=== PATIENT | male | born 1955 | race American Indian/Alaskan Native ===

== ENCOUNTER 2016-04-14 19:48 | Inpatient (IN) | payer MEDICARE ==
[2016-04-14 22:21] LABS: Basophils % (Auto) 0.2 % (0.0-1.8); Eosinophils % (Auto) 0.1 % (0.0-4.3); Hematocrit 49.8 % (35.5-45.6); Hemoglobin 16.4 gm/dl (11.8-15.2); Mean Corpuscular HGB Conc 33 % (32-34); Mean Corpuscular Hemoglobin 29 pg (28-32); Mean Corpuscular Volume 89 fl (84-94); Platelet Count 251 K/mm3 (140-440); Red Blood Count 5.63 M/mm3 (3.65-5.03); Red Cell Distribution Width 14.7 % (13.2-15.2); White Blood Count 12.7 K/mm3 (4.5-11.0)
[2016-04-14 22:40] LABS: Calcium 9.8 mg/dL (8.4-10.2); Chloride 88.3 mmol/L (98-107); Potassium 4.2 mmol/L (3.6-5.0)
[2016-04-15] MEDS ORDERED: ZOFRAN IV ONE (10:31)
[2016-04-15] MEDS ORDERED: NACL 0.9% 1000 ML 1,000 ML IV ONE (10:31)
[2016-04-15] MEDS ORDERED: MORPHINE IV ONE (10:31)
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
--- NOTE | 2016-04-15 10:45 | Admit Criteria Form ---
Admission Criteria Documentation: VOMITING Clinical Indications for Admission to Inpatient Care ( Place 'X' for any and all applicable criteria): Admission is indicated for ANY ONE of the following(1)(2)(3): [X ]I. Inpatient admission required rather than observation care because of ANY ONE of the following: [ ]i) Hemodynamic instability that is severe or persistent [ ]ii) Vomiting that is severe or persistent [ ]iii) Severe electrolyte abnormalities requiring inpatient care [ ]iv) Severe pain requiring acute inpatient management [ ]v) High fever or infection requiring inpatient admission as indicated by ANY ONE of the following(7)(8): [ ]1) Appropriate outpatient or observation care antimicrobial treatment unavailable, not effective, or not feasible [ ]2) Documented bacteremia [ ]3) Temp >104.9 degrees F (40.5 degrees C) (oral) [ ]4) Temp >103.1 degrees F (39.5 C) (oral) or <96.8 degrees F (36 C) (rectal) that does not respond to all emergency treatment measures [X]vi) Acute renal failure [ ]vii) IV fluid to replace significant ongoing losses (greater than 3 L/m2 per day) [ ]viii) Parenteral nutrition regimen that must be implemented on inpatient basis [ ]ix) Other condition, treatment or monitoring requiring inpatient admission [X ]II. Complete or partial gastrointestinal obstruction [ ]III. Other cause of vomiting requiring hospitalization (eg, poisoning, increased intracranial pressure) [ ]IV. Vomiting due to significant metabolic derangement (eg, severe hypercalcemia, diabetic ketoacidosis) Extended stay beyond goal length of stay may be needed for(1)(4): [ ]a) Severe vomiting [ ]b) Persistent vomiting, vital sign changes, severe electrolyte imbalance , or diagnosed cause of vomiting that requires continued hospitalization (eg, gastrointestinal obstruction , increased intracranial pressure) [ ]c) Surgery to treat identified causes of vomiting (eg, bowel obstruction , intracranial process) [ ]d) Comorbid illness that requires inpatient care (eg, acute heart failure , renal failure) [ ]e) Need for inpatient endoscopy The original [facility] content created by [email or web address] has been revised. The portions of the content which have been revised are identified through the use of italic text or in bold, and [facility] [employer] has neither reviewed nor approved the modified material. All other unmodified content is copyright [facility]. Please see references footnoted in the original [facility] edition 2016 Admission Criteria Met: Yes
[2016-04-15 10:53] LABS: Bilirubin,Urine NEG (Negative); Blood,Urine MOD (Negative); Ketones,Urine NEG (Negative); Leukocyte Esterase,Urine MOD (Negative); Mucus,Urine 1+ /HPF; Nitrite,Urine NEG (Negative); Urobilinogen,Urine < 2.0 mg/dL (<2.0)
[2016-04-15 10:54] LABS: WBC,Urine > 182.0 /HPF (0.0-6.0)
--- NOTE | 2016-04-15 11:29 | Cat Scan Report ---
CT OF THE ABDOMEN AND PELVIS WITHOUT CONTRAST HISTORY: Lower abdominal pain, nausea and vomiting. TECHNIQUE: Helical CT without contrast. Sagittal and coronal reformatted images. FINDINGS: Compared to 03/19/12. Multiple dilated, fluid filled loops of small bowel are identified throughout the abdomen. Terminal small bowel loops and colon are decompressed. A partial small bowel obstruction is suspected. This is probably secondary to an adhesion in the lower abdomen. The appendix is not confidently identified but there is a low suspicion for acute appendicitis. Normal liver, pancreas, spleen and adrenal glands. A solitary 1 cm gallstone is identified within the gallbladder. No inflammatory changes or abnormal dilatation. Bilateral nephrolithiasis is identified. A staghorn calculus is identified in the inferior right kidney measuring up to 4 x 2 cm. There is mild pyelocaliectasis in the right kidney. A large calyceal stone is identified in the inferior left kidney measuring 3.1 x 1.5 cm. There are scattered calyceal stones bilaterally measuring 2-3 mm. No ureteral stones are appreciated. The bladder is decompressed with Reyna catheter. Diffuse bladder wall thickening is noted which is unchanged. The bony structures are demineralized with advanced degenerative changes. Posterior fusion of the lumbar spine is noted. No acute fracture or bone lesion is appreciated. Heart size is normal. The visualized lung bases are clear. IMPRESSION: Partial small bowel obstruction. Bilateral nephrolithiasis. This appears to be mildly obstructing on the right side. Nephrolithiasis as significantly increased since 03/19/12. The bladder is contracted but diffuse bladder wall thickening is suspected which is unchanged. Chronic cystitis? Cholelithiasis.
[2016-04-15] MEDS ORDERED: ROCEPHIN/NS 1 GM/50 ML 50 ML IV ONE (12:05)
--- NOTE | 2016-04-15 14:13 | Event Note ---
Date: 04/15/16 See H/p in reports [facility]BO Paraplegia UTI
[2016-04-15] MEDS ORDERED: MILK OF MAGNESIA PO PRN (14:15)
[2016-04-15] MEDS ORDERED: DULCOLAX PR PRN (14:15)
[2016-04-15] MEDS ORDERED: TYLENOL PO PRN (14:15)
[2016-04-15] MEDS ORDERED: XYLOCAINE 1% MPF 5 mL INFILTRATI ONE (14:18)
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
[2016-04-15] MEDS ORDERED: ROCEPHIN/NS 1 GM/50 ML 50 ML IV SCH (16:00)
[2016-04-15] MEDS: D5/0.45NS 1,000 ML IV SCH (16:30)
[2016-04-15] MEDS: DILAUDID IV PRN ×2 (17:00→21:15)
[2016-04-16] MEDS: DILAUDID IV PRN ×4 (01:49→22:00)
[2016-04-16 05:47] LABS: Basophils % (Auto) 0.1 % (0.0-1.8); Eosinophils % (Auto) 1.2 % (0.0-4.3); Hematocrit 47.3 % (35.5-45.6); Hemoglobin 16.1 gm/dl (11.8-15.2); Mean Corpuscular HGB Conc 34 % (32-34); Mean Corpuscular Hemoglobin 30 pg (28-32); Mean Corpuscular Volume 89 fl (84-94); Platelet Count 212 K/mm3 (140-440); Red Blood Count 5.34 M/mm3 (3.65-5.03); Red Cell Distribution Width 14.3 % (13.2-15.2); White Blood Count 7.7 K/mm3 (4.5-11.0)
[2016-04-16 06:12] LABS: BUN/Creatinine Ratio 20.45; Calcium 8.5 mg/dL (8.4-10.2); Chloride 88.2 mmol/L (98-107); Potassium 3.8 mmol/L (3.6-5.0)
--- NOTE | 2016-04-16 09:34 | XRay Report ---
Abdominal series: History: Small bowel obstruction. Findings: No acute cardiopulmonary findings. No free intraperitoneal air. Few distended loops of small bowel with minimally large bowel. No radiopaque calculus or abnormal calcification. Impression: Probable incomplete small bowel obstruction.
[2016-04-16] MEDS ORDERED: ROCEPHIN 2,000 MG in NACL 0.9% 50 ML IV SCH (10:00)
--- NOTE | 2016-04-16 10:14 | Progress Note ---
Assessment and Plan IMP: Small bowel obstruction. Dehydration. PLAN: RL bolus, 1 liter in 4 hours. Small bowel series. Subjective Date of service: 04/16/16 Patient Reports: Positive: no new complaints, feels better, pain is less, no flatus, no bowel movement Objective Vital Signs - 12hr 04/16/16 04/16/16 04/16/16 01:49 01:53 02:03 Temperature 98.7 F Pulse Rate [ 97 H Left From Monitor] Respiratory 18 20 20 Rate Blood Pressure 137/85 [Left Arm] O2 Sat by Pulse 98 Oximetry 04/16/16 04/16/16 06:06 07:00 Temperature 98.3 F Pulse Rate [ 93 H Left From Monitor] Respiratory 18 18 Rate Blood Pressure 96/69 [Left Arm] O2 Sat by Pulse 98 Oximetry - Abdomen soft, not tender, bowel sounds hypoactive, other (NG in place.) - Labs 04/16/16 04:56 04/16/16 04:56 Diabetes panel 04/16/16 Range/Units 04:56 Sodium 135 L (137-145) mmol/L Potassium 3.8 (3.6-5.0) mmol/L Chloride 88.2 L (98-107) mmol/L Carbon Dioxide 27 (22-30) mmol/L BUN 45 H (9-20) mg/dL Creatinine 2.2 H (0.8-1.5) mg/dL Glucose 130 H (75-100) mg/dL Calcium 8.5 (8.4-10.2) mg/dL Calcium panel 04/16/16 Range/Units 04:56 Calcium 8.5 (8.4-10.2) mg/dL Pituitary panel 04/16/16 Range/Units 04:56 Sodium 135 L (137-145) mmol/L Potassium 3.8 (3.6-5.0) mmol/L Chloride 88.2 L (98-107) mmol/L Carbon Dioxide 27 (22-30) mmol/L BUN 45 H (9-20) mg/dL Creatinine 2.2 H (0.8-1.5) mg/dL Glucose 130 H (75-100) mg/dL Calcium 8.5 (8.4-10.2) mg/dL Adrenal panel 04/16/16 Range/Units 04:56 Sodium 135 L (137-145) mmol/L Potassium 3.8 (3.6-5.0) mmol/L Chloride 88.2 L (98-107) mmol/L Carbon Dioxide 27 (22-30) mmol/L BUN 45 H (9-20) mg/dL Creatinine 2.2 H (0.8-1.5) mg/dL Glucose 130 H (75-100) mg/dL Calcium 8.5 (8.4-10.2) mg/dL - Imaging Abdominal x-ray: report reviewed, image reviewed (with Dr. Crenshaw)
[2016-04-16] MEDS ORDERED: LACTATED RINGERS 1,000 ML IV SCH (11:00)
[2016-04-16] MEDS: ROCEPHIN/NS 2 GM/100 ML 100 ML IV SCH (11:11)
[2016-04-16] MEDS ORDERED: CHLORASEPTIC MM PRN (12:04)
[2016-04-16] MEDS: D5/0.45NS 1,000 ML IV SCH (16:40)
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
[2016-04-17] MEDS: D5/0.45NS 1,000 ML IV SCH ×2 (00:56→08:40)
[2016-04-17] MEDS: D5LR 1,000 ML IV SCH (03:00)
[2016-04-17 06:04] LABS: Basophils % (Auto) 0.3 % (0.0-1.8); Eosinophils % (Auto) 0.4 % (0.0-4.3); Hemoglobin 15.6 gm/dl (11.8-15.2); Mean Corpuscular HGB Conc 33 % (32-34); Mean Corpuscular Hemoglobin 29 pg (28-32); Mean Corpuscular Volume 88 fl (84-94); Platelet Count 223 K/mm3 (140-440); Red Blood Count 5.32 M/mm3 (3.65-5.03); Red Cell Distribution Width 14.5 % (13.2-15.2); White Blood Count 8.1 K/mm3 (4.5-11.0)
[2016-04-17 06:21] LABS: Blood Urea Nitrogen 42 mg/dL (9-20); Calcium 9.3 mg/dL (8.4-10.2); Carbon Dioxide 31 mmol/L (22-30); Chloride 86.2 mmol/L (98-107); Glucose 166 mg/dL (75-100); Potassium 3.9 mmol/L (3.6-5.0); Sodium 136 mmol/L (137-145)
[2016-04-17 06:32] LABS: Anion Gap 23 mmol/L
[2016-04-17] MEDS: ROCEPHIN/NS 2 GM/100 ML 100 ML IV SCH (09:35)
[2016-04-17] MEDS ORDERED: DIPRIVAN 10 MG/ML IV ONE (10:41)
[2016-04-17] MEDS ORDERED: DILAUDID ONE (10:41)
--- NOTE | 2016-04-17 10:53 | Event Note ---
Date: 04/17/16 The patient vomited a lot of the contrast given through the G-tube. The tube drainage is probably abundant. The abdomen is mild tenderness in the left side. No guarding or rebound. The fluoroscopic small bowel series showed small bowel obstruction. Impression: Complete small bowel obstruction. Plan: Exploratory laparotomy. The patient was explained the need for operative procedure, the risk and complications. He requested to proceed with the operation.
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
--- NOTE | 2016-04-17 11:25 | Anesthesia Day of Surgery ---
Anesthesia Day of Surgery - Day of Surgery Patient Examined: Yes Patient H&P Reviewed: Yes Patient is NPO: Yes
[2016-04-17] MEDS ORDERED: PEPCID IV ONE (11:35)
[2016-04-17] MEDS ORDERED: NACL 0.9% 1000 ML 1,000 ML ONE (11:35)
[2016-04-17] MEDS ORDERED: PEPCID PO NR (12:00)
[2016-04-17] MEDS ORDERED: VERSED IV NR (12:00)
[2016-04-17] MEDS ORDERED: NACL 0.9% 1000 ML 1,000 ML IV SCH (12:00)
[2016-04-17] MEDS ORDERED: PEPCID IV NR (12:00)
[2016-04-17] MEDS ORDERED: NEO SYNEPHRINE/NS Syringe(OR USE) IV ONE (12:39)
[2016-04-17] MEDS ORDERED: NACL 0.9% IR ONE (12:40)
[2016-04-17] MEDS ORDERED: ZEMURON IV ONE (12:55)
[2016-04-17] MEDS ORDERED: XYLOCAINE MPF 2% ONE (12:55)
[2016-04-17] MEDS ORDERED: ZOFRAN ONE (12:55)
[2016-04-17] MEDS ORDERED: BLOXIVERZ ONE (12:55)
[2016-04-17] MEDS ORDERED: ROBINUL ONE (12:56)
[2016-04-17] MEDS: DILAUDID IV PRN ×4 (13:45→14:20)
--- NOTE | 2016-04-17 13:55 | Operative Report ---
Operative Report Operative Report: Date of operation: 04/17/2016 Preoperative diagnosis: Small bowel obstruction. Postoperative diagnosis: #1. Small bowel obstruction. #2. Peritoneal adhesions. #3. Small bowel enterotomy. Operation: #1. Exploratory laparotomy. #2. Lysis of adhesions. #3. Segmental small bowel resection. Surgeon: Goran Davis M.D. Findings: 60 years old paraplegic patient admitted to the hospital with small bowel approximately an urinary tract infection secondary to bilateral renal calculi. On the second hospital day an abdominal series showed no change in the small bowel pattern on the x-rays. A Gastrografin small bowel series was ordered and this showed a complete small bowel obstruction. At operation we found a constricting band causing complete obstruction at the mid ileum with another area of obstruction secondary to an adhesion to the right-sided lower abdominal wall. Procedure: Under general anesthesia the patient's abdomen was prepped and draped in the usual sterile manner. A midline incision using the old surgical scar was performed using a #10 blade from above the umbilicus to above the 60s pubis. Dissection carried down to the fascia which was divided with electrocautery. The peritoneal cavity was entered at the epigastric area which was clear of adhesions. The incision was continued and the fascia and peritoneum all the way down to the suprapubic area. Dilated bowel wall and collapsed bowel were eviscerated until we found the band of adhesion causing the obstruction. Distal to that there was another adhesion to the anterior abdominal wall. Upon taking down these adhesions, it was so dense that an enterotomy occurred. We decided to resect this small portion of bowel. This was done by approximating the small bowel about 8 cm Roxanol and distal to the enterotomy site. Then through the enterotomy side we passed a GULSHAN stapler, one side and similarly one distally and then closed it and fired it. The hole in the bowel wall was grasped with the Allis clamps and closed with a TA stapler. A nice [id number] anastomosis was obtained in this manner. It was done. Abdominal cavity was irrigated with normal saline solution. Preparations were made for closure. The fascia was approximated with a running stitch of looped # 1 PDS. Skin was approximated with skin toyin. The wound was dressed with sterile dressings. She was awakened, extubated and transferred to the recovery room in good condition. Estimated blood loss: Negligible Intravenous fluid replacement: Crystalloids Complications: None Specimens: Segment of small bowel.
[2016-04-17] MEDS ORDERED: D5LR 1,000 ML IV ONE (14:00)
--- NOTE | 2016-04-17 15:12 | Post Anesthesia Evaluation ---
- Post Anesthesia Evaluation Patient Participated: Yes Airway Patent: Yes Stable Respiratory Function: Yes Nausea/Vomiting: No Temp > 96.8F: Yes Pain Manageable: Yes Adequeate Hydration: Yes Anesthesia Complications: No
--- NOTE | 2016-04-17 15:48 | Fluoroscopy Report ---
SMALL BOWEL SERIES WITH GASTROGRAFIN: FINDINGS: Initial images through 3 hours post ingestion demonstrate generalized small bowel dilatation with very slow progression of the contrast material. At 9 hours post ingestion, contrast has progressed into the distal small bowel. Between the 9 and 20 hour images, the patient regurgitated with very little residual contrast material in the bowel. IMPRESSION: Although almost all of the contrast was regurgitated at 20 hours post ingestion, the findings are suspicious for high-grade small bowel obstruction.
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
[2016-04-17] MEDS: HEPARIN SUB-Q SCH (22:30)
[2016-04-18] MEDS: D5LR 1,000 ML IV SCH ×2 (06:30→15:57)
[2016-04-18] MEDS: HEPARIN SUB-Q SCH ×3 (06:30→22:00)
[2016-04-18] MEDS: DILAUDID IV PRN ×4 (06:30→22:30)
[2016-04-18 08:15] LABS: Basophils % (Auto) 0.3 % (0.0-1.8); Eosinophils % (Auto) 1.1 % (0.0-4.3); Hematocrit 44.7 % (35.5-45.6); Hemoglobin 14.6 gm/dl (11.8-15.2); Mean Corpuscular HGB Conc 33 % (32-34); Mean Corpuscular Hemoglobin 30 pg (28-32); Mean Corpuscular Volume 90 fl (84-94); Red Blood Count 4.96 M/mm3 (3.65-5.03); Red Cell Distribution Width 14.4 % (13.2-15.2); White Blood Count 10.9 K/mm3 (4.5-11.0)
[2016-04-18 08:16] LABS: Anion Gap 15 mmol/L; BUN/Creatinine Ratio 32.22; Blood Urea Nitrogen 29 mg/dL (9-20); Calcium 8.5 mg/dL (8.4-10.2); Carbon Dioxide 32 mmol/L (22-30); Chloride 100.3 mmol/L (98-107); Glucose 115 mg/dL (75-100); Potassium 3.5 mmol/L (3.6-5.0); Sodium 144 mmol/L (137-145)
[2016-04-18 08:26] LABS: Platelet Count 201 K/mm3 (140-440)
[2016-04-18] MEDS: ROCEPHIN/NS 2 GM/100 ML 100 ML IV SCH (10:13)
--- NOTE | 2016-04-18 14:12 | Progress Note ---
Assessment and Plan IMP: Doing well after laparotomy and segmental small bowel resection for SBO. PLAN: D/C NG. Clear liquid diet. Subjective Date of service: 04/18/16 Patient Reports: Positive: no new complaints, feels better, no flatus, no bowel movement Objective Vital Signs - 12hr 04/18/16 04/18/16 08:00 10:00 Temperature 98.7 F Pulse Rate [ 93 H Left Brachial] Pulse Rate [ 93 H Left From Monitor] Respiratory 20 20 Rate Blood Pressure 145/87 [Left Arm] O2 Sat by Pulse 95 Oximetry - Abdomen soft, not tender, bowel sounds normal, wound (dressings dry and clear.), other ( NG: minimal drainage) - Psychiatric oriented to time, oriented to person, oriented to place, speech is normal - Labs 04/18/16 07:50 04/18/16 07:50 Diabetes panel 04/18/16 Range/Units 07:50 Sodium 144 D (137-145) mmol/L Potassium 3.5 L (3.6-5.0) mmol/L Chloride 100.3 (98-107) mmol/L Carbon Dioxide 32 H (22-30) mmol/L BUN 29 H (9-20) mg/dL Creatinine 0.9 (0.8-1.5) mg/dL Glucose 115 H (75-100) mg/dL Calcium 8.5 (8.4-10.2) mg/dL Calcium panel 04/18/16 Range/Units 07:50 Calcium 8.5 (8.4-10.2) mg/dL Pituitary panel 04/18/16 Range/Units 07:50 Sodium 144 D (137-145) mmol/L Potassium 3.5 L (3.6-5.0) mmol/L Chloride 100.3 (98-107) mmol/L Carbon Dioxide 32 H (22-30) mmol/L BUN 29 H (9-20) mg/dL Creatinine 0.9 (0.8-1.5) mg/dL Glucose 115 H (75-100) mg/dL Calcium 8.5 (8.4-10.2) mg/dL Adrenal panel 04/18/16 Range/Units 07:50 Sodium 144 D (137-145) mmol/L Potassium 3.5 L (3.6-5.0) mmol/L Chloride 100.3 (98-107) mmol/L Carbon Dioxide 32 H (22-30) mmol/L BUN 29 H (9-20) mg/dL Creatinine 0.9 (0.8-1.5) mg/dL Glucose 115 H (75-100) mg/dL Calcium 8.5 (8.4-10.2) mg/dL
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
[2016-04-18] MEDS: ZOFRAN IV PRN (17:51)
[2016-04-19] MEDS: DILAUDID IV PRN ×3 (01:30→22:58)
[2016-04-19] MEDS: HEPARIN SUB-Q SCH ×2 (06:00→16:12)
[2016-04-19 06:48] LABS: Anion Gap 13 mmol/L; Blood Urea Nitrogen 18 mg/dL (9-20); Calcium 8.2 mg/dL (8.4-10.2); Carbon Dioxide 33 mmol/L (22-30); Chloride 94.7 mmol/L (98-107); Glucose 103 mg/dL (75-100); Potassium 3.8 mmol/L (3.6-5.0); Sodium 137 mmol/L (137-145)
[2016-04-19 07:02] LABS: Basophils % (Auto) 0.4 % (0.0-1.8); Eosinophils % (Auto) 3.3 % (0.0-4.3); Hemoglobin 12.5 gm/dl (11.8-15.2); Mean Corpuscular HGB Conc 33 % (32-34); Mean Corpuscular Hemoglobin 30 pg (28-32); Mean Corpuscular Volume 91 fl (84-94); Platelet Count 207 K/mm3 (140-440); Red Blood Count 4.18 M/mm3 (3.65-5.03); Red Cell Distribution Width 14.1 % (13.2-15.2); White Blood Count 9.9 K/mm3 (4.5-11.0)
[2016-04-19] MEDS: D5LR 1,000 ML IV SCH ×2 (08:32→18:08)
--- NOTE | 2016-04-19 10:11 | Progress Note ---
Assessment and Plan IMP: Resolved SBO PLAN: Advance diet to full liquids. Subjective Date of service: 04/19/16 Patient Reports: Positive: no new complaints, tolerating liquids well, no flatus , no bowel movement. Negative: nausea, vomiting Objective Vital Signs - 12hr 04/18/16 04/19/16 04/19/16 23:09 01:30 02:00 Temperature 98.0 F Pulse Rate [ 98 H Right From Monitor] Respiratory 20 20 20 Rate Blood Pressure [Left Arm] Blood Pressure 167/89 [Right Arm] O2 Sat by Pulse 97 Oximetry 04/19/16 07:35 Temperature 99.3 F Pulse Rate [ 84 Right From Monitor] Respiratory 18 Rate Blood Pressure 176/97 [Left Arm] Blood Pressure 176/105 [Right Arm] O2 Sat by Pulse Oximetry - Abdomen soft, tender (minimal incisional tenderness), bowel sounds normal, wound ( dressings dry and clear) - Psychiatric oriented to time, oriented to person, oriented to place, speech is normal, memory intact - Labs 04/19/16 05:19 04/19/16 05:19 Diabetes panel 04/19/16 Range/Units 05:19 Sodium 137 (137-145) mmol/L Potassium 3.8 (3.6-5.0) mmol/L Chloride 94.7 L (98-107) mmol/L Carbon Dioxide 33 H (22-30) mmol/L BUN 18 (9-20) mg/dL Creatinine 0.8 (0.8-1.5) mg/dL Glucose 103 H (75-100) mg/dL Calcium 8.2 L (8.4-10.2) mg/dL Calcium panel 04/19/16 Range/Units 05:19 Calcium 8.2 L (8.4-10.2) mg/dL Pituitary panel 04/19/16 Range/Units 05:19 Sodium 137 (137-145) mmol/L Potassium 3.8 (3.6-5.0) mmol/L Chloride 94.7 L (98-107) mmol/L Carbon Dioxide 33 H (22-30) mmol/L BUN 18 (9-20) mg/dL Creatinine 0.8 (0.8-1.5) mg/dL Glucose 103 H (75-100) mg/dL Calcium 8.2 L (8.4-10.2) mg/dL Adrenal panel 04/19/16 Range/Units 05:19 Sodium 137 (137-145) mmol/L Potassium 3.8 (3.6-5.0) mmol/L Chloride 94.7 L (98-107) mmol/L Carbon Dioxide 33 H (22-30) mmol/L BUN 18 (9-20) mg/dL Creatinine 0.8 (0.8-1.5) mg/dL Glucose 103 H (75-100) mg/dL Calcium 8.2 L (8.4-10.2) mg/dL
[2016-04-19] MEDS: ROCEPHIN/NS 2 GM/100 ML 100 ML IV SCH (11:04)
[2016-04-19] MEDS: APRESOLINE IV PRN (16:08)
[2016-04-19] MEDS: ZOFRAN IV PRN (16:15)
[2016-04-19] MEDS ORDERED: CATAPRES-TTS PATCH TD SCH (18:00)
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
[2016-04-20] MEDS: HEPARIN SUB-Q SCH ×4 (00:10→22:50)
[2016-04-20] MEDS: DILAUDID IV PRN ×3 (05:00→23:18)
--- NOTE | 2016-04-20 10:19 | Progress Note ---
Assessment and Plan IMP: Doing well but no flatus or bm yet. PLAN: Continue on full liquids. Subjective Date of service: 04/20/16 Patient Reports: Positive: no new complaints, tolerating liquids well, no flatus , no bowel movement Objective Vital Signs - 12hr 04/19/16 04/19/16 04/19/16 22:30 22:58 23:28 Temperature Pulse Rate [ Apical] Pulse Rate [ Right From Monitor] Respiratory 20 18 Rate Respiratory 20 Rate [abd] Blood Pressure [Right Arm] O2 Sat by Pulse Oximetry 04/20/16 04/20/16 04/20/16 00:00 05:00 05:30 Temperature 99.1 F Pulse Rate [ Apical] Pulse Rate [ 93 H Right From Monitor] Respiratory 20 20 18 Rate Respiratory Rate [abd] Blood Pressure 149/97 [Right Arm] O2 Sat by Pulse 99 Oximetry 04/20/16 08:00 Temperature 98.5 F Pulse Rate [ 84 Apical] Pulse Rate [ Right From Monitor] Respiratory 18 Rate Respiratory Rate [abd] Blood Pressure 130/64 [Right Arm] O2 Sat by Pulse 97 Oximetry - Abdomen soft, tender (minimal op site), bowel sounds normal - Labs 04/19/16 05:19 04/19/16 05:19
[2016-04-20] MEDS: ROCEPHIN/NS 2 GM/100 ML 100 ML IV SCH (10:40)
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
[2016-04-20] MEDS: D5LR 1,000 ML IV SCH (17:00)
[2016-04-20] MEDS: APRESOLINE IV PRN (23:11)
[2016-04-21] MEDS: DILAUDID IV PRN (04:23)
[2016-04-21] MEDS: HEPARIN SUB-Q SCH ×2 (06:28→13:59)
--- NOTE | 2016-04-21 09:51 | Progress Note ---
Assessment and Plan IMP: Resolved post op ileus. PLAN: GI Soft diet. Subjective Date of service: 04/21/16 Patient Reports: Positive: no new complaints, feels better, flatus, bowel movement Objective Vital Signs - 12hr 04/20/16 04/20/16 04/20/16 22:00 23:11 23:18 Temperature Pulse Rate 76 Pulse Rate [ Right From Monitor] Respiratory 18 20 Rate Respiratory 20 Rate [abd] Blood Pressure 172/103 Blood Pressure [Right Arm] O2 Sat by Pulse Oximetry 04/20/16 04/21/16 04/21/16 23:48 00:00 04:00 Temperature 99.0 F 98.6 F Pulse Rate Pulse Rate [ 76 86 Right From Monitor] Respiratory 18 20 18 Rate Respiratory Rate [abd] Blood Pressure Blood Pressure 162/100 158/86 [Right Arm] O2 Sat by Pulse 99 99 Oximetry 04/21/16 04/21/16 04:23 04:53 Temperature Pulse Rate Pulse Rate [ Right From Monitor] Respiratory 20 18 Rate Respiratory Rate [abd] Blood Pressure Blood Pressure [Right Arm] O2 Sat by Pulse Oximetry - Abdomen soft, tender (op site), bowel sounds normal, wound (dry, clear and healing well. ) - Labs 04/19/16 05:19 04/19/16 05:19
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
[2016-04-21] MEDS: ROCEPHIN/NS 2 GM/100 ML 100 ML IV SCH (11:54)
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
[2016-04-21 17:56] VITALS: BP 144/79
== END 2016-04-21 18:05 | disposition home health service (06) | DRG 329 ==
LOC: ED 19:48 → 2B-SURG 04-15 14:15
PROVIDERS: ADMIT Internal Medicine; ATTEND Internal Medicine
PROC: 0DNB0ZZ Release Ileum, Open Approach (ICD-10-PCS; principal; 2016-04-17)
PROC: 0DNW0ZZ Release Peritoneum, Open Approach (ICD-10-PCS; 2016-04-17)
PROC: 0DQ80ZZ Repair Small Intestine, Open Approach (ICD-10-PCS; 2016-04-17)
PROC: 0DB80ZZ Excision of Small Intestine, Open Approach (ICD-10-PCS; 2016-04-17)
DX: K56.5 Intestinal adhesions [bands] with obstruction (postinfection) (principal); N17.0 Acute kidney failure with tubular necrosis; E43 Unspecified severe protein-calorie malnutrition; G82.20 Paraplegia, unspecified; Z68.1 Body mass index [BMI] 19.9 or less, adult; S36.439A Laceration of unspecified part of small intestine, initial encounter; N30.90 Cystitis, unspecified without hematuria; E86.0 Dehydration; F17.210 Nicotine dependence, cigarettes, uncomplicated; N20.0 Calculus of kidney; E87.6 Hypokalemia; I10 Essential (primary) hypertension
CPT/HCPCS: 36415; 74022; 74176; 74250; 80048; 81001; 82962; 85025; 88307; 96361; 96365; 96375; J0360; J0696; J1170; J1644; J2250; J2270; J2370; J2405; J2704; J2710; J7030; J7120; J7121; Q9963

== ENCOUNTER 2016-08-15 08:57 | Outpatient (CLI) | payer MEDICARE ==
--- NOTE | 2016-08-16 09:54 | Ultrasound Report ---
RIGHT UPPER QUADRANT ULTRASOUND: HISTORY: Right upper quadrant pain, gallstones. Technique: Transabdominal ultrasound imaging with Doppler interrogation. FINDINGS: A 1.3 cm shadowing gallstone is noted near the neck of the gallbladder. There is no evidence for abnormal biliary dilatation. No wall thickening or surrounding fluid. The CBD measures 3 mm. The right kidney measures 11.6 cm in length. There appears to be a large staghorn calculus in the inferior right renal sinus measuring up to 2.6 cm in greatest dimension. There is mild pyelocaliectasis in the superior right kidney. Few scattered renal cysts are also noted. The right kidney is echogenic consistent with medical renal disease. Images of the liver parenchyma, pancreas, and aorta are within normal limits. No perihepatic ascites. IMPRESSION: Cholelithiasis no evidence for acute cholecystitis. Staghorn calculus in the right kidney with mild right pyelocaliectasis. Scattered right renal cysts. Mild medical renal disease.
== END 2016-08-15 08:58 | disposition home or self-care (01) ==
LOC: US 08:57
PROVIDERS: ATTEND Surgery
DX: K80.20 Calculus of gallbladder without cholecystitis without obstruction (principal); N13.2 Hydronephrosis with renal and ureteral calculous obstruction; N28.1 Cyst of kidney, acquired; N28.89 Other specified disorders of kidney and ureter
CPT/HCPCS: 76705

== ENCOUNTER 2016-09-08 11:35 | Day surgery (SDC) | payer MEDICARE ==
--- NOTE | 2016-09-08 12:33 | Short Stay Summary ---
Short Stay Documentation Date of service: 09/08/16 - History Principal diagnosis: malfunctioning nephrostomy tube Past Medical History: other (renal stones with complicated removal) Past Surgical History: Other (renal stones with complicated removal) Social history: no significant social history - Allergies and Medications Current Medications: Allergies No Known Allergies Allergy (Verified 12/09/13 02:22) Home Medications Medication Instructions Recorded Confirmed Last Taken Type Ciprofloxacin HCl [Ciprofloxacin 500 mg PO Q12H #8 tab 04/21/16 09/08/16 07:00 Rx TAB] Acetaminophen [Tylenol] 2 tab PO Q6HR 09/08/16 09/08/16 09/07/16 History - Physical exam General appearance: no acute distress, cachectic Lungs: Normal air movement Breasts: deferred Heart: Regular rate Male Genitourinary: deferred Rectal Exam: deferred Neurological: Other (paraplegia) - Brief post op/procedure progress note Date of procedure: 09/08/16 Pre-op diagnosis: nephrolithiasis Post-op diagnosis: same Procedure: nephrostogram Anesthesia: none Surgeon: LINDSEY HERNANDEZ Estimated blood loss: none Pathology: none Condition: stable - Disposition Condition at discharge: Good Disposition: DC-01 TO HOME OR SELFCARE Short Stay Discharge Plan Activity: advance as tolerated Weight Bearing Status: Weight Bear as Tolerated Diet: regular Wound: keep clean and dry, per your surgeon's advice Follow up with: DI ARIZMENDI MD [Primary Care Provider] - 7 Days
--- NOTE | 2016-09-08 13:48 | Operative Report ---
Operative Report Operative Report: EXAM: FLUOROSCOPIC GUIDED EVALUATION OF THE KIDNEY CLINICAL INDICATION: PATIENT WITH COMPLEX HISTORY AND MULTIPLE SURGERIES WITH PARTIAL RETRACTION OF HIS SURGICAL PLACED NEPHROSTOMY TUBE DATE: 09/08/2016 PROCEDURE: Following an explanation of the risks, benefits and alternatives; written informed consent was obtained. The patient was brought to the angiographic suite and placed in prone position on the examination table. His right indwelling nephrostomy tube appears to have been broken. The tube was prepped and draped in the usual sterile fashion. Contrast was gently injected through the tube into the kidney and opacified the renal pelvis and multiple calyces. The distal aspect of the tube appears to be retracted into and inferior calyx however is still within the collecting system of the kidney. A previously placed double-J ureteral stent immediately opacifies with contrast and drains into the bladder. At this point, the catheter was sutured closed and redressed. The patient tolerated the procedure well. There were no immediate post procedure competitions. IMPRESSION: Nephrostomy demonstrating patency of the patient's ureteral stent and indwelling nephrostomy tube
[2016-09-08 13:50] VITALS: BP 157/88
== END 2016-09-08 14:15 | disposition home or self-care (01) ==
LOC: OPU 11:35
PROVIDERS: ATTEND Radiology Diagnostic Radiology
DX: T83.89XA Other specified complication of genitourinary prosthetic devices, implants and grafts, initial encounter (principal); Y83.8 Other surgical procedures as the cause of abnormal reaction of the patient, or of later complication, without mention of misadventure at the time of the procedure
CPT/HCPCS: 50431; Q9967

== ENCOUNTER 2016-09-19 08:43 | Day surgery (SDC) | payer MEDICARE ==
--- NOTE | 2016-09-19 12:17 | XRay Report ---
Single view abdomen: Compared to 09/02/16. Findings: Stable right ureteral stent. Staghorn calculus left kidney. No significant interval change. No bowel distention or wall thickening. Impression: Findings as detailed above
--- NOTE | 2016-09-19 14:25 | Short Stay Summary ---
Short Stay Documentation Date of service: 09/19/16 Narrative H&P: LATE ENTRY: accession had to be unlocked by prime 61 year old male male with right open stone removal and drain placed by urology with request for drain removal and nephrostogram. Discussed with Dr. Grimaldo prior to seeing patient. When I saw the patient, the patient told me his drain had fallen out 3-4 days ago. XRAY obtained demonstrating stable position of his right ureteral stent. Nurses contacted urology to determine status of PICC line which is not being used. PICC line then removed. - History Past Medical History: other (stone disease) Past Surgical History: Other (right sided stone removal/urological procedures) Social history: no significant social history - Allergies and Medications Current Medications: Allergies No Known Allergies Allergy (Verified 12/09/13 02:22) Home Medications Medication Instructions Recorded Confirmed Last Taken Type Ciprofloxacin HCl [Ciprofloxacin 500 mg PO Q12H #8 tab 04/21/16 09/08/16 07:00 Rx TAB] Acetaminophen [Tylenol] 2 tab PO Q6HR 09/08/16 09/08/16 09/07/16 History - Physical exam General appearance: no acute distress Lungs: Normal air movement Gastrointestinal: normal - Brief post op/procedure progress note Date of procedure: 09/19/16 Pre-op diagnosis: No procedure performed - Hospital course Hospital course: No procedure performed. - Disposition Condition at discharge: Stable Disposition: DC-01 TO HOME OR SELFCARE Short Stay Discharge Plan Activity: advance as tolerated Weight Bearing Status: Weight Bear as Tolerated Diet: regular Wound: other (no procedure performed) Follow up with: DI ARIZMENDI MD [Primary Care Provider] - 7 Days
== END 2016-09-19 08:44 | disposition home or self-care (01) ==
LOC: OPU 08:43
PROVIDERS: ATTEND Radiology Diagnostic Radiology
DX: N20.0 Calculus of kidney (principal); Z53.8 Procedure and treatment not carried out for other reasons
CPT/HCPCS: 74000

== ENCOUNTER 2016-09-21 12:06 | Emergency (ER) | payer MEDICARE ==
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
[2016-09-21 15:40] VITALS: BP 178/86
== END 2016-09-21 15:42 | disposition home or self-care (01) ==
LOC: ED 12:06
DX: T83.011A Breakdown (mechanical) of indwelling urethral catheter, initial encounter (principal); I10 Essential (primary) hypertension; N17.9 Acute kidney failure, unspecified
CPT/HCPCS: 99283

== ENCOUNTER 2017-02-04 12:43 | Day surgery (SDC) | payer MEDICARE ==
[2017-02-04] MEDS ORDERED: ANCEF/STERILE WATER 2 GM/20 ML 2 GM/20 ML SYRINGE IV NR (13:00)
[2017-02-04 14:00] LABS: Basophils % (Auto) 0.9 % (0.0-1.8); Eosinophils % (Auto) 1.8 % (0.0-4.3); Hematocrit 41.6 % (35.5-45.6); Hemoglobin 14.1 gm/dl (11.8-15.2); Mean Corpuscular HGB Conc 34 % (32-34); Mean Corpuscular Hemoglobin 30 pg (28-32); Mean Corpuscular Volume 89 fl (84-94); Platelet Count 207 K/mm3 (140-440); Red Blood Count 4.68 M/mm3 (3.65-5.03); Red Cell Distribution Width 14.6 % (13.2-15.2); White Blood Count 9.5 K/mm3 (4.5-11.0)
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
--- NOTE | 2017-02-04 14:07 | Anesthesia Day of Surgery ---
Anesthesia Day of Surgery - Day of Surgery Patient Examined: Yes Patient H&P Reviewed: Yes Patient is NPO: Yes
[2017-02-04 14:12] LABS: Anion Gap 17 mmol/L; BUN/Creatinine Ratio 12; Blood Urea Nitrogen 7 mg/dL (9-20); Carbon Dioxide 26 mmol/L (22-30); Chloride 102.9 mmol/L (98-107); Glucose 89 mg/dL (75-100); Potassium 4.4 mmol/L (3.6-5.0); Sodium 141 mmol/L (137-145)
[2017-02-04] MEDS ORDERED: PEPCID IV NR (15:00)
[2017-02-04] MEDS ORDERED: LACTATED RINGERS 1,000 ML IV SCH (15:00)
[2017-02-04] MEDS ORDERED: VERSED IV NR (15:00)
--- NOTE | 2017-02-04 15:38 | Discharge Summary ---
Short Stay Discharge Plan Activity: other Weight Bearing Status: Non-Weight Bearing Diet: regular Special Instructions: other (inc fluids ) Durable Medical Equipment Needed Upon Discharge: other (stent ) Follow up with: PRIMARY CAREMD [Primary Care Provider] - 7 Days JUSTIN MARIE MD [Staff Physician] - 14 Days
--- NOTE | 2017-02-04 15:39 | Post Operative Note ---
Date of procedure: 02/04/17 Pre-op diagnosis: retINED STENT Post-op diagnosis: same Findings: as above Procedure: cysto stent removal Anesthesia: ELIAZAR Surgeon: JUSTIN MARIE Estimated blood loss: minimal Pathology: none Condition: stable Disposition: PACU
[2017-02-04] MEDS ORDERED: DIPRIVAN 10 MG/ML IV ONE (15:50)
[2017-02-04] MEDS ORDERED: DILAUDID ONE (15:50)
[2017-02-04] MEDS ORDERED: ZOFRAN ONE (16:22)
[2017-02-04] MEDS ORDERED: XYLOCAINE MPF 2% ONE (16:23)
[2017-02-04 17:18] VITALS: BP 182/94
--- NOTE | 2017-02-04 22:11 | Operative Report ---
PREOPERATIVE DIAGNOSES: Retained double-J stent, poorly compliant. POSTOPERATIVE DIAGNOSES: Retained double-J stent, poorly compliant. PROCEDURE: Cystoscopy, stent removal, retrograde. SURGEON: Meliton Grimaldo MD ANESTHESIA: General. FINDINGS: This is a gentleman with neurogenic bladder, bilateral reflux, bilateral Staghorn stones. He had a huge stone in the right kidney which was removed. He had a stent, so as to come out in 2-3 weeks, it has been about 5 months. He now presents for stent removal. DESCRIPTION OF PROCEDURE: The patient brought to the operating room and placed on the operating table. Following induction of anesthesia, placed in lithotomy position, prepped and draped in usual sterile fashion. The stent was removed under fluoroscopic guidance and easily removed and uncoiled under fluoroscopic guidance. Retrograde showed tortuous ureters bilaterally, huge orifices consistent with reflux and/or dyssynergia. The stent was removed. We tried to get a wire to see if we can go back in to the kidney and the ureter was so tortuous, it did get to the upper ureter and the UPJ, but we did not want to traumatize it. The ureter was so ballooned out and took a little while, but it did drain. The patient tolerated the procedure well and we decided to leave it out. He is not very compliant and his creatinine is 0.7, which is amazing. His hemoglobin is fine. We left the stent out. We left the Reyna, which I think is the best thing, the low pressure system would help his system, brought to recovery room in stable condition. JOB# [id number] ARLEN/DAFNE
--- NOTE | 2017-02-05 15:14 | Fluoroscopy Report ---
FLUORO RETROGRADE UROGRAPHY INDICATION: Calculus of right ureter. COMPARISON: 08/26/2016. FINDINGS: Fluoroscopic guidance provided by radiology during retrograde urography by Dr. Grimaldo. 6 fluoroscopic images were captured. 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 Possible cholecystectomy clips and Lugo rods again noted. Interval removal of right hemiabdomen iatrogenic devices. Third image obtained during ureteroscopy and demonstrates right stent removal. Subsequently, retrograde pyelogram opacifies a tortuous right ureter with variable segment dilatation, maximum caliber approximately 1-1.5 cm. No definite calculi identified. Small contrast noted within the urinary bladder. Final image also demonstrates opacification of left distal ureter that appears mildly tortuous with subtle narrowing about the left ureterovesical junction not entirely excluded versus underfilling. CONCLUSION: Findings, as above. Please also correlate with the procedural report by Dr. Grimaldo. Thank you for the opportunity to participate in this patient's care.
== END 2017-02-04 12:44 | disposition home or self-care (01) ==
LOC: OR 12:43
PROVIDERS: ATTEND Urology
DX: Z46.6 Encounter for fitting and adjustment of urinary device (principal); N31.1 Reflex neuropathic bladder, not elsewhere classified; I10 Essential (primary) hypertension; F17.210 Nicotine dependence, cigarettes, uncomplicated; N20.0 Calculus of kidney; N28.89 Other specified disorders of kidney and ureter; Z79.2 Long term (current) use of antibiotics; Z79.899 Other long term (current) drug therapy; Z93.3 Colostomy status; Z98.890 Other specified postprocedural states
CPT/HCPCS: 36415; 52310; 74420; 80048; 85025; C1758; C1769; J0690; J1170; J2250; J2405; J2704; J7120; Q9967

== ENCOUNTER 2017-07-14 17:49 | Emergency (ER) | payer MEDICARE ==
[2017-07-14 19:46] LABS: Basophils # (Auto) 0.1 K/mm3 (0.0-0.1); Basophils % (Auto) 0.6 % (0.0-1.8); Eosinophils # (Auto) 0.3 K/mm3 (0.0-0.4); Eosinophils % (Auto) 2.3 % (0.0-4.3); Hematocrit 39.7 % (35.5-45.6); Hemoglobin 13.3 gm/dl (11.8-15.2); Lymphocytes # (Auto) 1.7 K/mm3 (1.2-5.4); Lymphocytes % (Auto) 13.8 % (13.4-35.0); Mean Corpuscular HGB Conc 34 % (32-34); Mean Corpuscular Hemoglobin 31 pg (28-32); Mean Corpuscular Volume 91 fl (84-94); Monocytes # (Auto) 1.4 K/mm3 (0.0-0.8); Monocytes % (Auto) 11.1 % (0.0-7.3); Platelet Count 315 K/mm3 (140-440); Red Blood Count 4.36 M/mm3 (3.65-5.03); Red Cell Distribution Width 13.4 % (13.2-15.2)
[2017-07-14 20:02] LABS: Alanine Aminotransferase 10 units/L (7-56); Albumin 3.3 g/dL (3.9-5); BUN/Creatinine Ratio 19; Blood Urea Nitrogen 15 mg/dL (9-20); Calcium 8.8 mg/dL (8.4-10.2); Hemolysis Index 2
[2017-07-14] MEDS ORDERED: TORADOL IM ONE (20:45)
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
[2017-07-14] MEDS ORDERED: TYLENOL ONE (21:31)
[2017-07-14] MEDS ORDERED: TYLENOL PO ONE (21:35)
[2017-07-14] MEDS ORDERED: NACL 0.9% 1000 ML 1,000 ML IV ONE (21:45)
[2017-07-14] MEDS ORDERED: ZOSYN/NS 3.375GM/50ML 3.375 GM/50 ML BAG IV SCH (22:00)
[2017-07-14 22:41] LABS: Bacteria,Urine 1+ /HPF (Negative); Bilirubin,Urine NEG (Negative); Blood,Urine SM (Negative); Color,Urine Yellow (Yellow); Protein,Urine <15 mg/dL mg/dL (Negative); Urobilinogen,Urine < 2.0 mg/dL (<2.0)
[2017-07-14] MEDS ORDERED: MORPHINE IV ONE (23:21)
[2017-07-14] MEDS ORDERED: ZOFRAN IV ONE (23:22)
[2017-07-15 01:54] VITALS: BP 135/74
== END 2017-07-15 01:54 | disposition home or self-care (01) ==
LOC: ED 17:49
DX: N39.0 Urinary tract infection, site not specified (principal); I10 Essential (primary) hypertension; Z93.3 Colostomy status
CPT/HCPCS: 36415; 80053; 81001; 82140; 85025; 87040; 96365; 96372; 96375; 99283; J1885; J2270; J2405; J2543; J7030